=== PATIENT | female | born 1975 | race African-American/Black ===

== ENCOUNTER 2017-09-12 06:32 | Emergency (ER) | payer OTHER ==
[~2017-09-12] VITALS: Ht 167.6 cm; Wt 80.3 kg
[~2017-09-12 06:32] MED LIST: ALBUTEROL SULF8.5 GM INH; IBUPROFEN100 MG/5 M ORAL; IBUPROFEN600 MG ORAL; NKM; PHENERGAN6.25 MG/5 ORAL; ROBAXIN-750750 MG PO
[2017-09-12 06:46] VITALS: BP 117/71
[2017-09-12] MEDS ORDERED: Acetaminophen Soln 160mg/5ml ORAL ONE (07:00)
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
[2017-09-12] MEDS ORDERED: ROBAXIN-750750 MG PO (08:07)
[2017-09-12] MEDS ORDERED: Methocarbamol 750mg tab ORAL ONE (08:15)
--- NOTE | 2017-09-12 08:39 | Diagnostic Imaging Report ---
Indication: Pain Technique: XRAY Shoulder Compl L Comparison: None Findings: There is no acute fracture or dislocation. Imaged portions of the left lung are clear. No radiopaque foreign body seen. Impression: No acute fracture or dislocation.
--- NOTE | 2017-09-12 08:41 | Diagnostic Imaging Report ---
Indication: Pain Technique: XRAY Knee 3v L Comparison: None Findings: There is no acute fracture or dislocation. There is mild osteoarthrosis manifested by narrowing of the medial femorotibial compartment with some subchondral sclerosis. No knee joint effusion. No radiopaque foreign body seen. Impression: No acute fracture or dislocation.
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
[2017-09-12 09:31] VITALS: BP 121/76
== END 2017-09-12 09:32 | disposition home or self-care (01) ==
LOC: MERGE 06:51 → EMR 06:51
DX: S16.1XXA Strain of muscle, fascia and tendon at neck level, initial encounter (principal); S80.02XA Contusion of left knee, initial encounter; V43.52XA Car driver injured in collision with other type car in traffic accident, initial encounter; Y92.410 Unspecified street and highway as the place of occurrence of the external cause
CPT/HCPCS: 70450; 99284